=== PATIENT | male | born 1965 | race American Indian/Alaskan Native ===

== ENCOUNTER 2017-06-23 09:50 | Inpatient (IN) | payer BC ==
[2017-06-23] MEDS ORDERED: ZOFRAN ODT PO ONE (10:04)
[2017-06-23 10:28] LABS: Basophils # (Auto) 0.1 K/mm3 (0.0-0.1); Basophils % (Auto) 0.9 % (0.0-1.8); Eosinophils # (Auto) 0.1 K/mm3 (0.0-0.4); Eosinophils % (Auto) 1.2 % (0.0-4.3); Hematocrit 43.5 % (35.5-45.6); Hemoglobin 14.7 gm/dl (11.8-15.2); Lymphocytes # (Auto) 2.1 K/mm3 (1.2-5.4); Lymphocytes % (Auto) 31.7 % (13.4-35.0); Mean Corpuscular HGB Conc 34 % (32-34); Mean Corpuscular Hemoglobin 33 pg (28-32); Mean Corpuscular Volume 97 fl (84-94); Monocytes # (Auto) 0.8 K/mm3 (0.0-0.8); Monocytes % (Auto) 11.3 % (0.0-7.3); Platelet Count 360 K/mm3 (140-440); Red Blood Count 4.47 M/mm3 (3.65-5.03); Red Cell Distribution Width 13.1 % (13.2-15.2)
[2017-06-23 10:44] LABS: Bacteria,Urine 2+ /HPF (Negative); Bilirubin,Urine NEG (Negative); Blood,Urine NEG (Negative); Color,Urine Amber (Yellow); Mucus,Urine 3+ /HPF; Nitrite,Urine NEG (Negative)
[2017-06-23 10:50] LABS: Alanine Aminotransferase 111 units/L (7-56); BUN/Creatinine Ratio 14; Blood Urea Nitrogen 13 mg/dL (9-20); Calcium 9.1 mg/dL (8.4-10.2); Hemolysis Index 13; Lipase 17 units/L (13-60)
[2017-06-23] MEDS ORDERED: NACL 0.9% 1000 ML 1,000 ML IV ONE ×2 (11:35→12:58)
--- NOTE | 2017-06-23 12:32 | Emergency Department Report ---
ED N/V/D HPI - General Chief complaint: Nausea/Vomiting/Diarrhea Stated complaint: FLU LIKE SYMPTOMS Time Seen by Provider: 06/23/17 10:53 Source: patient Mode of arrival: Ambulatory Limitations: No Limitations - History of Present Illness Initial comments: 52-year-old male past medical history hypertension presents with complaint of approximately 5 days of sore throat nausea vomiting bodyaches fevers chills persistent cough. Patient is awake alert and oriented 3 not in acute distress. States he feels very nauseous. States he has vomited several times over the last 48 hours. States he had some diarrhea which has since resolved. Primarily experiencing fevers bodyaches and nausea at this time. Patient denies chest pain palpitations or shortness of breath at rest. Denies any abdominal pain. Patient is fully lucid and answering questions appropriately. Denies headache photophobia or phonophobia. 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 Denies smoking drugs or alcohol use. MD complaint: nausea, vomiting Onset/Timin -: days(s) Associated Abdominal Pain: No Improves with: none Worsens with: none Context: sick contacts Associated Symptoms: myalgias, cough, fever/chills, nausea/vomiting - Related Data Allergies Allergy/AdvReac Type Severity Reaction Status Date / Time No Known Allergies Allergy Unverified 06/23/17 09:56 ED Review of Systems ROS: Stated complaint: FLU LIKE SYMPTOMS Other details as noted in HPI Constitutional: denies: chills, fever Eyes: denies: eye pain, eye discharge, vision change ENT: throat pain. denies: ear pain Respiratory: cough. denies: shortness of breath, wheezing Cardiovascular: denies: chest pain, palpitations Endocrine: no symptoms reported Gastrointestinal: nausea, vomiting. denies: abdominal pain, diarrhea Genitourinary: denies: urgency, dysuria Musculoskeletal: denies: back pain, joint swelling, arthralgia Skin: denies: rash, lesions Neurological: denies: headache, weakness, paresthesias Psychiatric: denies: anxiety, depression Hematological/Lymphatic: denies: easy bleeding, easy bruising ED Past Medical Hx - Past Medical History Previous Medical History?: Yes Hx Hypertension: Yes - Surgical History Past Surgical History?: No - Social History Smoking Status: Never Smoker Substance Use Type: Alcohol ED Physical Exam - General Limitations: No Limitations General appearance: alert, in no apparent distress - Head Head exam: Present: atraumatic, normocephalic - Eye Eye exam: Present: normal appearance, PERRL, EOMI - ENT ENT exam: Present: mucous membranes moist - Neck Neck exam: Present: normal inspection, full ROM - Respiratory Respiratory exam: Present: normal lung sounds bilaterally. Absent: respiratory distress - Cardiovascular Cardiovascular Exam: Present: regular rate, normal rhythm. Absent: systolic murmur, diastolic murmur, rubs, gallop - GI/Abdominal GI/Abdominal exam: Present: soft (abdomen soft nontender nondistended 4 quadrants), normal bowel sounds - Rectal Rectal exam: Present: deferred - exam: Present: normal inspection External exam: Present: normal external exam - Extremities Exam Extremities exam: Present: normal inspection - Back Exam Back exam: Present: normal inspection - Neurological Exam Neurological exam: Present: alert, oriented X3, CN II-XII intact, normal gait - Psychiatric Psychiatric exam: Present: normal affect, normal mood - Skin Skin exam: Present: warm, dry, intact, normal color. Absent: rash ED Course Vital Signs 06/23/17 06/23/17 06/23/17 09:56 13:14 13:16 Temperature 98.9 F 98.8 F Pulse Rate 118 H 99 H Respiratory 22 16 Rate Blood Pressure 166/110 183/115 174/111 O2 Sat by Pulse 98 100 Oximetry ED Medical Decision Making - Lab Data Result diagrams: 06/23/17 10:06 06/23/17 10:06 - Medical Decision Making A/P: Elevated bilirubin, flulike illness, possible sepsis 1- flu swab negative, RSV negative 2- case discussed with ED attending Dr. Lawton and hospitalist Dr. Edwards. Patient to be admitted for undifferentiated sepsis 3- patient to be admitted for further management IV fluid IV fluid resuscitation Critical care attestation.: If time is entered above; I have spent that time in minutes in the direct care of this critically ill patient, excluding procedure time. ED Disposition Clinical Impression: Flu-like symptoms, Elevated bilirubin Sepsis Qualifiers: Sepsis type: sepsis due to unspecified organism Qualified Code(s): A41.9 - Sepsis, unspecified organism Disposition: - TO HOME OR SELFCARE Is pt being admited?: Yes Does the pt Need Aspirin: No Condition: Stable Referrals: PRIMARY CARE,MD [Primary Care Provider] - 3-5 Days
[2017-06-23] MEDS ORDERED: REGLAN IV ONE (12:58)
--- NOTE | 2017-06-23 13:24 | History and Physical Report ---
History of Present Illness Chief complaint: I feel sick, Im weak History of present illness: 52 YO Male with HTN, presents to ED for evaluation. Pt states that he has experienced subjective fever, shaking chills, body aches, and productive cough of clear sputum for the past 5 days, with worsening symptoms over the past 3 days. Pt acknowledges several episodes of nausea and vomiting as well as loose stools which have resolved over the past 2 days. Pt denies chest pain, palpitations, syncope, BRBPR, trauma, prolonged travel/immobility, individual/ family history of DVT/PE, or known recent ill contacts. Pt seen and evaluated in ED and found to have UTI, SIRS, And Rhabdomyolysis. Pt initiated on IV abx therapy, and IVF resuscitation therapy. Pt admitted to medical floor. - Past History Past Medical History: hypertension, other (obesity) Past Surgical History: No surgical history (reviewed) Social history: single, alcohol abuse. denies: smoking, prescription drug abuse Family history: hypertension Medications and Allergies Allergies Allergy/AdvReac Type Severity Reaction Status Date / Time No Known Allergies Allergy Verified 06/23/17 19:08 Home Medications Medication Instructions Recorded Confirmed Last Taken Type Lisinopril [Zestril] 20 mg PO QDAY 06/23/17 06/23/17 06/18/17 History Multivit-Minerals/FA/Lycopene [One 1 each PO DAILY 06/23/17 06/23/17 06/18/17 History Daily Men's Health Tablet] Active Meds: Active Medications Sodium Chloride (Nacl 0.9% 1000 Ml) 1,000 mls @ 999 mls/hr IV BOLUS ONE Stop: 06/23/17 13:58 Review of Systems Constitutional: fever, chills, sweats, weakness, lethargy, no weight loss, no weight gain, no night sweats Ears, nose, mouth and throat: ear pain, ear discharge, tinnitis, decreased hearing, nose pain, nasal congestion Cardiovascular: no chest pain, no orthopnea, no palpitations Respiratory: no cough, no cough with sputum Gastrointestinal: nausea, vomiting, diarrhea Genitourinary Male: no hematuria, no flank pain, no discharge Rectal: no pain, no incontinence, no bleeding Musculoskeletal: no neck stiffness, no neck pain, no shooting arm pain, no arm numbness/tingling Integumentary: no rash, no pruritis, no redness, no sores Neurological: no head injury, no transient paralysis, no paralysis, no weakness , no parathesias, no numbness, no tingling Psychiatric: no anxiety, no memory loss, no change in sleep habits, no sleep disturbances, no insomnia, no hypersomnia, no change in appetite, no change in libido Endocrine: no cold intolerance, no heat intolerance, no polyphagia, no excessive thirst, no polydipsia Hematologic/Lymphatic: no easy bruising, no easy bleeding Allergic/Immunologic: no urticaria, no allergic rhinitis, no wheezing Exam - Constitutional Vitals: Temp Pulse Resp BP Pulse Ox 98.8 F 99 H 16 174/111 100 06/23/17 13:14 06/23/17 13:14 06/23/17 13:14 06/23/17 13:16 06/23/17 13:14 General appearance: Present: mild distress - EENT Eyes: Present: PERRL ENT: hearing intact, clear oral mucosa - Neck Neck: Present: supple, normal ROM - Respiratory Respiratory effort: normal Respiratory: bilateral: CTA - Cardiovascular Heart Sounds: Present: S1 & S2. Absent: rub, click - Extremities Extremities: pulses symmetrical, No edema Peripheral Pulses: within normal limits - Abdominal General gastrointestinal: Present: soft, non-tender, non-distended, normal bowel sounds Male genitourinary: Present: normal - Integumentary Integumentary: Present: clear, warm, dry - Musculoskeletal Musculoskeletal: gait normal, strength equal bilaterally - Psychiatric Psychiatric: appropriate mood/affect, intact judgment & insight - Neurologic Neurologic: CNII-XII intact, moves all extremities Results - Labs CBC & Chem 7: 06/23/17 10:06 06/23/17 10:06 Labs: Abnormal lab results 06/23/17 06/23/17 06/23/17 Range/Units 10:05 10:06 10:06 MCV 97 H (84-94) fl MCH 33 H (28-32) pg RDW 13.1 L (13.2-15.2) % [place] % (Auto) 11.3 H (0.0-7.3) % Chloride 94.6 L (98-107) mmol/L Glucose 132 H (75-100) mg/dL Total Bilirubin 2.10 H (0.1-1.2) mg/dL AST 107 H (5-40) units/L ALT 111 H (7-56) units/L Total Creatine Kinase (55-170) units/L Total Protein 8.5 H (6.3-8.2) g/dL Ur Specific [place] 1.033 H (1.003-1.030) Urine WBC (Auto) 10.0 H (0.0-6.0) /HPF 06/23/17 Range/Units 10:06 MCV (84-94) fl MCH (28-32) pg RDW (13.2-15.2) % [place] % (Auto) (0.0-7.3) % Chloride (98-107) mmol/L Glucose (75-100) mg/dL Total Bilirubin (0.1-1.2) mg/dL AST (5-40) units/L ALT (7-56) units/L Total Creatine Kinase 2475 H (55-170) units/L Total Protein (6.3-8.2) g/dL Ur Specific [place] (1.003-1.030) Urine WBC (Auto) (0.0-6.0) /HPF Assessment and Plan - Patient Problems (1) UTI (urinary tract infection) Current Visit: Yes Status: Acute Qualifiers: Encounter type: initial encounter Plan to address problem: IV Antibiotics, Urinalysis, IVF resuscitation, supportive care. (2) Rhabdomyolysis Current Visit: Yes Status: Acute Qualifiers: Encounter type: initial encounter Plan to address problem: serial bmp to monitor serum creatnine, monitor uop q shift, repeat ck level, will consider IV bicarbonate if decreased uop, or increased serum creatnine. (3) Accelerated hypertension Current Visit: Yes Status: Acute Plan to address problem: Monitor bp q shift, IV hydralazine prn, continue medical management (4) SIRS (systemic inflammatory response syndrome) Current Visit: Yes Status: Acute Plan to address problem: IV abx, serial lactic acid, supportive care. (5) DVT prophylaxis Current Visit: Yes Status: Acute
[2017-06-23] MEDS ORDERED: NACL 0.9% 1000 ML IV ONE (13:25)
[2017-06-23] MEDS ORDERED: VANCOMYCIN VIAL IV ONE (13:25)
[2017-06-23] MEDS ORDERED: ATIVAN IV PRN (13:49)
[2017-06-23] MEDS ORDERED: VANCOMYCIN 2,000 MG in NACL 0.9% 500 ML 500 ML IV ONE (14:00)
[2017-06-23] MEDS ORDERED: VANCOMYCIN PHARMACY TO DOSE IV SCH (14:00)
--- NOTE | 2017-06-23 14:20 | XRay Report ---
ROUTINE CHEST, TWO VIEWS: HISTORY: Sepsis. The trachea, heart, mediastinal contour, lung roman and bony thorax are unremarkable. IMPRESSION: Unremarkable chest x-ray.
[2017-06-23 14:22] LABS: Hepatitis A Antibody IgM Non-Reactive (NonReactive); Hepatitis B Core IgM Non-Reactive (NonReactive); Hepatitis B Surface Antigen Non-Reactive (Negative); Hepatitis C Virus Antibody Non-Reactive (NonReactive)
[2017-06-23] MEDS: ZOSYN/NS 4.5GM/100ML 4.5 GM/100 ML VIAL IV SCH ×2 (14:32→23:40)
[2017-06-23] MEDS ORDERED: DULCOLAX PR PRN (16:03)
[2017-06-23] MEDS ORDERED: TYLENOL PO PRN (16:03)
[2017-06-23] MEDS ORDERED: ZOFRAN IV PRN (16:03)
[2017-06-23] MEDS ORDERED: MILK OF MAGNESIA PO PRN (16:03)
[2017-06-23] MEDS ORDERED: APRESOLINE ONE (18:16)
[2017-06-23] MEDS: APRESOLINE IV PRN (18:19)
[2017-06-24] MEDS: VANCOMYCIN 1,500 MG in NACL 0.9% 500 ML 500 ML IV SCH ×2 (02:08→15:11)
[2017-06-24] MEDS: ZOSYN/NS 4.5GM/100ML 4.5 GM/100 ML VIAL IV SCH ×3 (06:02→22:02)
--- NOTE | 2017-06-24 08:57 | Progress Note ---
Assessment and Plan Assessment and plan: --Urinary tract infection; continue empiric antibiotics, follow cultures, IV fluids --Rhabdomyolysis; nontraumatic Patient reports that he's been exercising rigorously these days, urine drug screen negative, no history of trauma Continue IV fluid, input output monitoring, preserved renal function, increased oral fluids --Accelerated hypertension; at the time of admission; resolved, now blood pressures are reasonable levels, continue current antihypertensives and when necessary medications --Transaminitis; elevated LFTs, no baseline levels to compare, patient denies alcohol intake, closely monitor LFTs, consider ultrasound liver, GI evaluation inpatient versus outpatient --DVT prophylaxis; with Lovenox We'll closely monitor the patient and just continue management as needed History Interval history: Patient seen and evaluated medical records reviewed No new events reported by nursing staff Admitted with flulike symptoms Noted to have elevated LFTs and elevated CK Patient complains of generalized body pains, reports that he has been doing exercises Vital signs reviewed stable Hospitalist Physical - Constitutional Vitals: Temp Pulse Resp BP Pulse Ox 99.2 F 85 18 151/97 96 06/24/17 03:39 06/24/17 03:35 06/24/17 03:39 06/24/17 03:35 06/24/17 03:39 General appearance: Present: no acute distress, well-nourished, obese - EENT Eyes: Present: PERRL, EOM intact - Neck Neck: Present: supple, normal ROM - Respiratory Respiratory effort: normal Respiratory: bilateral: diminished, negative: rales, rhonchi, wheezing - Cardiovascular Rhythm: regular Heart Sounds: Present: S1 & S2 - Extremities Extremities: no ischemia, No edema - Abdominal General gastrointestinal: soft, non-tender, non-distended, normal bowel sounds - Integumentary Integumentary: Present: clear, warm - Psychiatric Psychiatric: appropriate mood/affect, cooperative - Neurologic Neurologic: CNII-XII intact, moves all extremities Results - Labs CBC & Chem 7: 06/23/17 10:06 06/23/17 10:06 Labs: Laboratory Last Values WBC 6.7 K/mm3 (4.5-11.0) 06/23/17 10:06 RBC 4.47 M/mm3 (3.65-5.03) 06/23/17 10:06 Hgb 14.7 gm/dl (11.8-15.2) 06/23/17 10:06 Hct 43.5 % (35.5-45.6) 06/23/17 10:06 MCV 97 fl (84-94) H 06/23/17 10:06 MCH 33 pg (28-32) H 06/23/17 10:06 MCHC 34 % (32-34) 06/23/17 10:06 RDW 13.1 % (13.2-15.2) L 06/23/17 10:06 Plt Count 360 K/mm3 (140-440) 06/23/17 10:06 Lymph % (Auto) 31.7 % (13.4-35.0) 06/23/17 10:06 [place] % (Auto) 11.3 % (0.0-7.3) H 06/23/17 10:06 Eos % (Auto) 1.2 % (0.0-4.3) 06/23/17 10:06 Baso % (Auto) 0.9 % (0.0-1.8) 06/23/17 10:06 Lymph # 2.1 K/mm3 (1.2-5.4) 06/23/17 10:06 [place] # 0.8 K/mm3 (0.0-0.8) 06/23/17 10:06 Eos # 0.1 K/mm3 (0.0-0.4) 06/23/17 10:06 Baso # 0.1 K/mm3 (0.0-0.1) 06/23/17 10:06 Seg Neutrophils % 54.9 % (40.0-70.0) 06/23/17 10:06 Seg Neutrophils # 3.7 K/mm3 (1.8-7.7) 06/23/17 10:06 D-Dimer 154.93 ng/mlDDU (0-234) 06/23/17 13:35 Sodium 138 mmol/L (137-145) 06/23/17 10:06 Potassium 3.7 mmol/L (3.6-5.0) 06/23/17 10:06 Chloride 94.6 mmol/L (98-107) L 06/23/17 10:06 Carbon Dioxide 26 mmol/L (22-30) 06/23/17 10:06 Anion Gap 21 mmol/L 06/23/17 10:06 BUN 13 mg/dL (9-20) 06/23/17 10:06 Creatinine 0.9 mg/dL (0.8-1.5) 06/23/17 10:06 Estimated GFR > 60 ml/min 06/23/17 10:06 BUN/Creatinine Ratio 14 % 06/23/17 10:06 Glucose 132 mg/dL (75-100) H 06/23/17 10:06 Lactic Acid 1.20 mmol/L (0.7-2.0) 06/23/17 20:12 Calcium 9.1 mg/dL (8.4-10.2) 06/23/17 10:06 Total Bilirubin 2.10 mg/dL (0.1-1.2) H 06/23/17 10:06 AST 107 units/L (5-40) H 06/23/17 10:06 ALT 111 units/L (7-56) H 06/23/17 10:06 Alkaline Phosphatase 57 units/L (35-129) 06/23/17 10:06 Total Creatine Kinase 2475 units/L (55-170) H 06/23/17 10:06 Total Protein 8.5 g/dL (6.3-8.2) H 06/23/17 10:06 Albumin 5.0 g/dL (3.9-5) 06/23/17 10:06 Albumin/Globulin Ratio 1.4 % 06/23/17 10:06 Lipase 17 units/L (13-60) 06/23/17 10:06 Urine Color [place] (Yellow) 06/23/17 10:05 Urine Turbidity Clear (Clear) 06/23/17 10:05 Urine pH 5.0 (5.0-7.0) 06/23/17 10:05 Ur Specific [place] 1.033 (1.003-1.030) H 06/23/17 10:05 Urine Protein 100 mg/dl mg/dL (Negative) 06/23/17 10:05 Urine Glucose (UA) Neg mg/dL (Negative) 06/23/17 10:05 Urine Ketones 20 mg/dL (Negative) 06/23/17 10:05 Urine Blood Neg (Negative) 06/23/17 10:05 Urine Nitrite Neg (Negative) 06/23/17 10:05 Urine Bilirubin Neg (Negative) 06/23/17 10:05 Urine Urobilinogen 2.0 mg/dL (<2.0) 06/23/17 10:05 Ur Leukocyte Esterase Tr (Negative) 06/23/17 10:05 Urine WBC (Auto) 10.0 /HPF (0.0-6.0) H 06/23/17 10:05 Urine RBC (Auto) 3.0 /HPF (0.0-6.0) 06/23/17 10:05 U Epithel Cells (Auto) 4.0 /HPF (0-13.0) 06/23/17 10:05 Urine Bacteria (Auto) 2+ /HPF (Negative) 06/23/17 10:05 Urine Mucus 3+ /HPF 06/23/17 10:05 Hepatitis A IgM Ab Non-reactive (NonReactive) 06/23/17 13:35 Hep Bs Antigen Non-reactive (Negative) 06/23/17 13:35 Hep B Core IgM Ab Non-reactive (NonReactive) 06/23/17 13:35 Hepatitis C Antibody Non-reactive (NonReactive) 06/23/17 13:35
[2017-06-24] MEDS: THERAGRAN Tab PO SCH (10:56)
[2017-06-24] MEDS: FOLVITE PO SCH (10:56)
[2017-06-24] MEDS: VITAMIN B-1 PO SCH (10:56)
[2017-06-24 16:19] LABS: Amphetamine Screen,Urine PRESUMPTIVE NEGATIVE; Benzodiazepines Screen,Urine PRESUMPTIVE NEGATIVE; Cannabinoid Screen,Urine PRESUMPTIVE NEGATIVE; Cocaine Screen,Urine PRESUMPTIVE NEGATIVE; Methadone Screen,Urine PRESUMPTIVE NEGATIVE; Opiate Screen,Urine PRESUMPTIVE NEGATIVE
[2017-06-24] MEDS: APRESOLINE IV PRN (18:16)
[2017-06-25] MEDS: VANCOMYCIN 1,500 MG in NACL 0.9% 500 ML 500 ML IV SCH (01:27)
[2017-06-25] MEDS: ZOSYN/NS 4.5GM/100ML 4.5 GM/100 ML VIAL IV SCH (06:02)
[2017-06-25 07:00] LABS: Alanine Aminotransferase 63 units/L (7-56); Albumin 4.3 g/dL (3.9-5); BUN/Creatinine Ratio 8; Blood Urea Nitrogen 9 mg/dL (9-20); Calcium 9.1 mg/dL (8.4-10.2); Hemolysis Index 5
[2017-06-25 09:59] VITALS: BP 160/103
[2017-06-25] MEDS: THERAGRAN Tab PO SCH (11:56)
[2017-06-25] MEDS: FOLVITE PO SCH (11:56)
[2017-06-25] MEDS: VITAMIN B-1 PO SCH (11:57)
--- NOTE | 2017-06-25 12:46 | Discharge Summary ---
Providers - Providers Date of Admission: 06/23/17 16:03 Date of discharge: 06/25/17 Attending physician: JOHN MARTINEZ Primary care physician: DASHA ISRAEL Hospitalization Condition: Stable Disposition: DC-01 TO HOME OR SELFCARE Time spent for discharge: 32 min Core Measure Documentation - Palliative Care Palliative Care/ Comfort Measures: Not Applicable - Core Measures Any of the following diagnoses?: none Exam - Constitutional Vitals: Temp Pulse Resp BP Pulse Ox 99.3 F 82 18 160/103 97 06/25/17 08:45 06/25/17 08:45 06/25/17 08:45 06/25/17 08:45 06/25/17 08:45 General appearance: Present: no acute distress, well-nourished, obese - EENT Eyes: Present: PERRL, EOM intact - Neck Neck: Present: supple, normal ROM - Respiratory Respiratory effort: normal Respiratory: negative: rales, rhonchi, wheezing - Cardiovascular Rhythm: regular Heart Sounds: Present: S1 & S2 - Extremities Extremities: no ischemia, No edema - Abdominal General gastrointestinal: Present: soft, non-tender, non-distended, normal bowel sounds - Integumentary Integumentary: Present: clear, warm - Musculoskeletal Musculoskeletal: strength equal bilaterally - Psychiatric Psychiatric: appropriate mood/affect, cooperative - Neurologic Neurologic: CNII-XII intact, moves all extremities Plan Activity: no restrictions Diet: regular Additional Instructions: check CK levels and Liver Function tests in 3-4 days at PMD office. Advised to take plenty of oral fluids. Avoid excessive physical activity, in view of elevated CK levels. activity as tolerated. Advised 2 days rest on 06/26/17 and 06/27/17 Follow up with: PRIMARY CARE, [Referring] - 3-5 Days Prescriptions: Azithromycin [Zithromax Z-REMINGTON] 0 mg PO DAILY #1 tab Lisinopril [Zestril TAB] 20 mg PO QDAY #30 tablet
[2017-06-26] MEDS ORDERED: ZESTRIL PO SCH (10:00)
== END 2017-06-25 14:11 | disposition home or self-care (01) | DRG 872 ==
LOC: ED 09:50 → 3A 16:03
PROVIDERS: ADMIT Internal Medicine; ATTEND Internal Medicine
DX: A41.9 Sepsis, unspecified organism (principal); M62.82 Rhabdomyolysis; N39.0 Urinary tract infection, site not specified; R74.0 Nonspecific elevation of levels of transaminase and lactic acid dehydrogenase [LDH]; I10 Essential (primary) hypertension; Z72.89 Other problems related to lifestyle; Z82.49 Family history of ischemic heart disease and other diseases of the circulatory system
CPT/HCPCS: 36415; 71046; 80053; 80074; 80307; 81001; 82140; 82550; 83690; 83735; 84100; 85025; 85379; 87040; 87086; 87400; 87491; 96361; 96365; 96375; J0360; J2543; J2765; J3370; J7030; J7040; Q0162

== ENCOUNTER 2017-10-18 22:05 | Emergency (ER) | payer BC ==
[2017-10-18] MEDS ORDERED: ADRENALINE P/F SUB-Q ONE (22:23)
[2017-10-18] MEDS ORDERED: BENADRYL IV ONE (22:23)
[2017-10-18] MEDS ORDERED: PEPCID IV ONE (22:23)
[2017-10-18] MEDS ORDERED: ADRENALIN ONE (22:28)
--- NOTE | 2017-10-18 22:28 | Emergency Department Report ---
ED Allergic Reaction HPI - General Stated complaint: ALLERGIC REACTION Time Seen by Provider: 10/18/17 22:15 Source: patient Mode of arrival: Ambulatory Limitations: No Limitations - History of Present Illness Initial Comments: Mrs. Elder is a 52-year-old male with history of hypertension. He takes lisinopril 20 mg daily. He presents with allergic reaction to shrimp. After eating shrimp at 7:30 PM, he took a nap. He woke up with hives on his face and upper body. He has lip and tongue swelling. He denies shortness of breath. He has hoarse voice and difficulty swallowing. 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) - Related Data Home Medications Medication Instructions Recorded Confirmed Last Taken Multivit-Minerals/FA/Lycopene [One 1 each PO DAILY 06/23/17 06/23/17 06/18/17 Daily [place] Tablet] Previous Rx's Medication Instructions Recorded Last Taken Type Azithromycin [Zithromax Z-REMINGTON] 0 mg PO DAILY #1 tab 06/25/17 Unknown Rx Lisinopril [Zestril TAB] 20 mg PO QDAY #30 tablet 06/25/17 Unknown Rx EPINEPHrine [Epipen] 0.3 mg IJ ONCE PRN #2 auto.injct 10/19/17 Unknown Rx Famotidine 20 mg PO BID 3 Days #6 tablet 10/19/17 Unknown Rx diphenhydrAMINE [Benadryl CAP] 25 mg PO Q6HR 3 Days #9 capsule 10/19/17 Unknown Rx predniSONE [Deltasone] 3 tab PO QDAY 3 Days #9 tab 10/19/17 Unknown Rx Allergies Allergy/AdvReac Type Severity Reaction Status Date / Time No Known Allergies Allergy Verified 06/23/17 19:08 ED Review of Systems ROS: Stated complaint: ALLERGIC REACTION Other details as noted in HPI Comment: All other systems reviewed and negative Constitutional: denies: fever, malaise Respiratory: denies: cough Cardiovascular: denies: chest pain ED Past Medical Hx - Past Medical History Hx Hypertension: Yes - Social History Smoking Status: Never Smoker Substance Use Type: Alcohol - Medications Home Medications: Home Medications Medication Instructions Recorded Confirmed Last Taken Type Multivit-Minerals/FA/Lycopene [One 1 each PO DAILY 06/23/17 06/23/17 06/18/17 History Daily Men's Health Tablet] Azithromycin [Zithromax Z-REMINGTON] 0 mg PO DAILY #1 tab 06/25/17 Unknown Rx Lisinopril [Zestril TAB] 20 mg PO QDAY #30 tablet 06/25/17 Unknown Rx EPINEPHrine [Epipen] 0.3 mg IJ ONCE PRN #2 auto.injct 10/19/17 Unknown Rx Famotidine 20 mg PO BID 3 Days #6 tablet 10/19/17 Unknown Rx diphenhydrAMINE [Benadryl CAP] 25 mg PO Q6HR 3 Days #9 capsule 10/19/17 Unknown Rx predniSONE [Deltasone] 3 tab PO QDAY 3 Days #9 tab 10/19/17 Unknown Rx ED Physical Exam - General General appearance: alert, in no apparent distress - Head Head exam: Present: atraumatic, normocephalic - Eye Eye exam: Present: normal appearance - ENT ENT exam: Present: other (large mobile tongue enlarged lips) - Neck Neck exam: Present: normal inspection. Absent: tenderness, meningismus - Respiratory Respiratory exam: Present: normal lung sounds bilaterally. Absent: respiratory distress, wheezes, rales, rhonchi, stridor, accessory muscle use, decreased breath sounds, prolonged expiratory - Cardiovascular Cardiovascular Exam: Present: normal rhythm, tachycardia, normal heart sounds. Absent: systolic murmur, diastolic murmur, rubs, gallop - GI/Abdominal GI/Abdominal exam: Present: soft, normal bowel sounds. Absent: distended, tenderness, guarding, rebound - Rectal Rectal exam: Present: deferred - Extremities Exam Extremities exam: Present: normal inspection - Back Exam Back exam: Present: normal inspection - Neurological Exam Neurological exam: Present: alert, oriented X3 - Psychiatric Psychiatric exam: Present: normal affect, normal mood - Skin Skin exam: Present: warm, dry, urticaria, other (diffuse urticaria involving face limbs torso). Absent: rash ED Course Vital Signs 10/18/17 10/18/17 10/18/17 22:12 22:15 22:20 Temperature 98.2 F Pulse Rate 119 H 122 H 116 H Respiratory 20 11 L 18 Rate Blood Pressure 95/61 Blood Pressure [Right] O2 Sat by Pulse 89 97 Oximetry 10/18/17 10/18/17 10/18/17 22:30 22:45 23:00 Temperature Pulse Rate 110 H 109 H 101 H Respiratory 21 17 20 Rate Blood Pressure 101/69 120/83 119/85 Blood Pressure [Right] O2 Sat by Pulse 93 98 99 Oximetry 10/18/17 10/18/17 10/19/17 23:08 23:15 00:00 Temperature 98.3 F Pulse Rate 106 H 101 H Respiratory 20 19 17 Rate Blood Pressure 102/80 Blood Pressure 122/70 [Right] O2 Sat by Pulse 98 95 98 Oximetry - Reevaluation(s) Reevaluation #1: 10/19/17 00:29 I reevaluated Ms. Elder. His symptoms have improved. He still has mildly edematous tongue and resolving urticaria. ED Medical Decision Making - Medical Decision Making Mr. Elder presents with anaphylaxis due to shrimp. He has had a previous allergic reaction to shrimp which occurred several years ago. He has been able to eat shrimp without allergic symptoms since that time. After 4 hours observation he improved. Discharged home with EpiPen, prednisone, famotidine, Benadryl. Critical Care Time: Yes (40) Critical care attestation.: If time is entered above; I have spent that time in minutes in the direct care of this critically ill patient, excluding procedure time. 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, Angioedema Disposition: - TO HOME OR SELFCARE Is pt being admited?: No Does the pt Need Aspirin: No Condition: Stable Instructions: Anaphylaxis (ED), Food Allergy (ED), Epinephrine (Injection) Prescriptions: diphenhydrAMINE [Benadryl CAP] 25 mg PO Q6HR 3 Days #9 capsule EPINEPHrine [Epipen] 0.3 mg IJ ONCE PRN #2 auto.injct PRN Reason: Allergic Reaction Famotidine 20 mg PO BID 3 Days #6 tablet predniSONE [Deltasone] 3 tab PO QDAY 3 Days #9 tab Referrals: SHELL KOHLI MD [Staff Physician] - 3-5 Days PRIMARY CARE, [Primary Care Provider] - 3-5 Days Forms: Work/School Release Form(ED) Time of Disposition: 02:41
[2017-10-19 04:55] VITALS: BP 119/77
== END 2017-10-19 03:05 | disposition home or self-care (01) ==
LOC: ED 22:05 → EEVIPCON 22:05 → ED 10-19 03:05
DX: T78.02XA Anaphylactic reaction due to shellfish (crustaceans), initial encounter (principal); I10 Essential (primary) hypertension; Z91.013 Allergy to seafood
CPT/HCPCS: 96372; 96374; 96375; 99291; J0171; J1200; J2930

== ENCOUNTER 2018-11-12 04:43 | Emergency (ER) | payer BC ==
--- NOTE | 2018-11-12 06:02 | Emergency Department Report ---
ED N/V/D HPI - General Chief complaint: Abdominal Pain Stated complaint: VOMITING Time Seen by Provider: 11/12/18 05:57 Source: patient Mode of arrival: Ambulatory Limitations: No Limitations - History of Present Illness Initial comments: pt is a 53 y/o aam with hx of htn who presents for n/v after left over chicken from [email or web address] , states 3 episodes of n/v there is no fever or chills no melena no cp no sob no diaphoresis , states symptoms are resolved however supervisor contact and service clerks wanted him to be evaluated. MD complaint: nausea, vomiting Onset/Timin -: minutes(s) Description of Vomiting: food contents Description of Diarrhea: water, other (none ) Location: diffuse Radiation: none Pain Scale: 0 Improves with: rest Worsens with: none - Related Data Home Medications Medication Instructions Recorded Confirmed Last Taken Multivit-Minerals/FA/Lycopene [One 1 each PO DAILY 06/23/17 06/23/17 06/18/17 Daily Eventup Tablet] Previous Rx's Medication Instructions Recorded Last Taken Type Azithromycin [Zithromax Z-REMINGTON] 0 mg PO DAILY #1 tab 06/25/17 Unknown Rx Lisinopril [Zestril TAB] 20 mg PO QDAY #30 tablet 06/25/17 Unknown Rx EPINEPHrine [Epipen] 0.3 mg IJ ONCE PRN #2 auto.injct 10/19/17 Unknown Rx Famotidine 20 mg PO BID 3 Days #6 tablet 10/19/17 Unknown Rx diphenhydrAMINE [Benadryl CAP] 25 mg PO Q6HR 3 Days #9 capsule 10/19/17 Unknown Rx predniSONE [Deltasone] 3 tab PO QDAY 3 Days #9 tab 10/19/17 Unknown Rx Acetaminophen/Codeine [Tylenol 1 tab PO Q6H PRN #12 tab 05/17/18 Unknown Rx /Codeine # 3 tab] Amoxicillin/K Clav Tab [Augmentin 1 tab PO Q12HR #20 tab 05/17/18 Unknown Rx 875 mg] Chlorhexidine Mouthwash [Peridex] 15 ml MM BID #1 bottle 05/17/18 Unknown Rx Ibuprofen [Motrin] 600 mg PO Q8H PRN #20 tablet 05/17/18 Unknown Rx Lisinopril 20 mg PO DAILY #90 tablet 09/08/18 Unknown Rx Famotidine [Pepcid] 20 mg PO BID #60 tablet 11/12/18 Unknown Rx Allergies Allergy/AdvReac Type Severity Reaction Status Date / Time No Known Allergies Allergy Verified 06/23/17 19:08 ED Review of Systems ROS: Stated complaint: VOMITING Other details as noted in HPI Constitutional: denies: chills, fever Eyes: denies: eye pain, eye discharge, vision change ENT: denies: ear pain, throat pain Respiratory: denies: cough, shortness of breath, wheezing Cardiovascular: denies: chest pain, palpitations Endocrine: no symptoms reported Gastrointestinal: abdominal pain, nausea, vomiting. denies: diarrhea, constipation, hematemesis, melena, hematochezia Genitourinary: denies: urgency, dysuria, frequency, hematuria, discharge Musculoskeletal: denies: back pain, joint swelling, arthralgia Skin: denies: rash, lesions Neurological: denies: headache, weakness, numbness, paresthesias, confusion, abnormal gait, vertigo Psychiatric: auditory hallucinations. denies: anxiety, depression, homicidal thoughts, suicidal thoughts Hematological/Lymphatic: denies: easy bleeding, easy bruising ED Past Medical Hx - Past Medical History Previous Medical History?: Yes Hx Hypertension: Yes Hx CVA: Yes Hx Heart Attack/AMI: Yes Hx Congestive Heart Failure: Yes Hx Diabetes: Yes Hx Deep Vein Thrombosis: Yes Hx Pulmonary Embolism: Yes Hx GERD: Yes Hx Liver Disease: Yes Hx Renal Disease: Yes Hx of Cancer: Yes Hx Sickle Cell Disease: Yes Hx Arthritis: Yes Hx Headaches / Migraines: Yes Hx Seizures: Yes Hx Kidney Stones: Yes Hx Psychiatric Treatment: Yes Hx Asthma: Yes Hx COPD: Yes - Surgical History Past Surgical History?: No - Social History Smoking Status: Never Smoker Substance Use Type: None - Medications Home Medications: Home Medications Medication Instructions Recorded Confirmed Last Taken Type Multivit-Minerals/FA/Lycopene [One 1 each PO DAILY 06/23/17 06/23/17 06/18/17 History Daily Men's Health Tablet] Azithromycin [Zithromax Z-REMINGTON] 0 mg PO DAILY #1 tab 06/25/17 Unknown Rx Lisinopril [Zestril TAB] 20 mg PO QDAY #30 tablet 06/25/17 Unknown Rx EPINEPHrine [Epipen] 0.3 mg IJ ONCE PRN #2 auto.injct 10/19/17 Unknown Rx Famotidine 20 mg PO BID 3 Days #6 tablet 10/19/17 Unknown Rx diphenhydrAMINE [Benadryl CAP] 25 mg PO Q6HR 3 Days #9 capsule 10/19/17 Unknown Rx predniSONE [Deltasone] 3 tab PO QDAY 3 Days #9 tab 10/19/17 Unknown Rx Acetaminophen/Codeine [Tylenol 1 tab PO Q6H PRN #12 tab 05/17/18 Unknown Rx /Codeine # 3 tab] Amoxicillin/K Clav Tab [Augmentin 1 tab PO Q12HR #20 tab 05/17/18 Unknown Rx 875 mg] Chlorhexidine Mouthwash [Peridex] 15 ml MM BID #1 bottle 05/17/18 Unknown Rx Ibuprofen [Motrin] 600 mg PO Q8H PRN #20 tablet 05/17/18 Unknown Rx Lisinopril 20 mg PO DAILY #90 tablet 09/08/18 Unknown Rx Famotidine [Pepcid] 20 mg PO BID #60 tablet 11/12/18 Unknown Rx ED Physical Exam - General Limitations: No Limitations General appearance: alert, in no apparent distress - Head Head exam: Present: atraumatic, normocephalic - Eye Eye exam: Present: normal appearance, PERRL, EOMI, conjunctival injection. Absent: periorbital tenderness Pupils: Present: normal accommodation - ENT ENT exam: Present: normal orophraynx, mucous membranes moist - Neck Neck exam: Present: normal inspection, tenderness. Absent: full ROM, lymphadenopathy, thyromegaly - Respiratory Respiratory exam: Present: normal lung sounds bilaterally. Absent: respiratory distress, wheezes, stridor, chest wall tenderness - Cardiovascular Cardiovascular Exam: Present: regular rate, normal rhythm, normal heart sounds. Absent: systolic murmur, diastolic murmur, rubs, gallop - GI/Abdominal GI/Abdominal exam: Present: soft, normal bowel sounds. Absent: distended, tenderness, guarding, rebound, rigid, bruit, hernia - Rectal Rectal exam: Present: deferred - exam: Present: normal inspection - Extremities Exam Extremities exam: Present: normal inspection - Back Exam Back exam: Present: normal inspection, full ROM. Absent: tenderness, CVA tenderness (R), CVA tenderness (L), muscle spasm, paraspinal tenderness, vertebral tenderness, rash noted - Neurological Exam Neurological exam: Present: alert, oriented X3, CN II-XII intact, normal gait, reflexes normal - Psychiatric Psychiatric exam: Present: normal affect, normal mood - Skin Skin exam: Present: warm ED Course Vital Signs 11/12/18 04:50 Temperature 98.6 F Pulse Rate 96 H Respiratory 18 Rate Blood Pressure 173/110 O2 Sat by Pulse 99 Oximetry ED Medical Decision Making - EKG Data Interpretation: no acute changes - Radiology Data Radiology results: pending, report reviewed - Medical Decision Making this n/v brought on by lefte over chicken , symptoms are resolved after n/v there is no abd pain no n/v no fever no chills pt is crrently tolerating po intake at this time, pt denclines labs or imagine as feels better at this time. will dc to home instable condition with rx for pepcid po bid , follow up with pcp in 2 days , will take Lisinopril, pt has medication in rolan possession, pt Aan. Critical care attestation.: If time is entered above; I have spent that time in minutes in the direct care of this critically ill patient, excluding procedure time. ED Disposition Clinical Impression: Abdominal pain Qualifiers: Abdominal location: generalized Qualified Code(s): R10.84 - Generalized abdominal pain Nausea and vomiting Qualifiers: Vomiting type: unspecified Vomiting Intractability: non-intractable Qualified Code(s): R11.2 - Nausea with vomiting, unspecified Disposition: DC-01 TO HOME OR SELFCARE Is pt being admited?: No Does the pt Need Aspirin: No Condition: Stable Instructions: Abdominal Pain (ED), Acute Nausea and Vomiting (ED) Prescriptions: Famotidine [Pepcid] 20 mg PO BID #60 tablet Referrals: ZEHRA YOUNG MD [Primary Care Provider] - 3-5 Days Forms: Work/School Release Form(ED)
[2018-11-12 07:56] VITALS: BP 138/95
== END 2018-11-12 06:20 | disposition home or self-care (01) ==
LOC: ED 04:43
DX: R11.2 Nausea with vomiting, unspecified (principal); R10.84 Generalized abdominal pain; I11.0 Hypertensive heart disease with heart failure; I50.9 Heart failure, unspecified; I25.2 Old myocardial infarction; E11.9 Type 2 diabetes mellitus without complications; J44.9 Chronic obstructive pulmonary disease, unspecified; K21.9 Gastro-esophageal reflux disease without esophagitis; Z86.73 Personal history of transient ischemic attack (TIA), and cerebral infarction without residual deficits; Z86.718 Personal history of other venous thrombosis and embolism; Z85.9 Personal history of malignant neoplasm, unspecified
CPT/HCPCS: 99282